=== PATIENT | male | born 1960 | race Caucasian/White ===

== ENCOUNTER 2018-06-12 08:04 | Emergency (ER) | payer MEDICAID ==
[~2018-06-12] VITALS: Ht 167.6 cm; Wt 85.6 kg
[~2018-06-12 08:04] MED LIST: CLON0.5T20; CLON0.5T20 PO; LISI-167 PO
[2018-06-12 08:10] VITALS: BP 145/95
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
--- NOTE | 2018-06-12 08:37 | NUR ---
Break RN note: Pt to xray ambulatory with steady gait accompanied by radiation control specialist.
--- NOTE | 2018-06-12 09:30 | NUR ---
PT STATES, "ARE YOU A FUCKING NURSE?" EXPLAINED THAT THIS RN APPRECIATE NOT TO USE LANGAUAGE WITH THIS RN. PT STATES, "I AM NOT GOOD WITH PEOPLE".
[2018-06-12] MEDS ORDERED: BACITRACIN ZINC OINT 500U/GM, 0.9 GM ONE ×2 (09:51→10:40)
[2018-06-12] MEDS ORDERED: KETOROLAC 30 MG/1 ML ONE ×2 (10:21→10:22)
[2018-06-12] MEDS ORDERED: KETOROLAC 30 MG/1 ML IM ONE (10:30)
--- NOTE | 2018-06-12 10:57 | NUR ---
Patient/Caregiver given discharge instructions and they have confirmed that they understand the instructions. Patient ambulatory with steady gait.
== END 2018-06-12 11:02 | disposition home or self-care (01) ==
LOC: ED 09:33
DX: S63.502A Unspecified sprain of left wrist, initial encounter (principal); S63.501A Unspecified sprain of right wrist, initial encounter; S60.212A Contusion of left wrist, initial encounter; S60.211A Contusion of right wrist, initial encounter; S00.511A Abrasion of lip, initial encounter; S00.81XA Abrasion of other part of head, initial encounter; M62.830 Muscle spasm of back; K21.9 Gastro-esophageal reflux disease without esophagitis; I10 Essential (primary) hypertension; V29.88XA Motorcycle rider (driver) (passenger) injured in other specified transport accidents, initial encounter; Y93.89 Activity, other specified; Y92.89 Other specified places as the place of occurrence of the external cause; Y99.8 Other external cause status
CPT/HCPCS: 72072; 73110; 73130; 96372; 99283; J1885

== ENCOUNTER 2019-02-15 13:34 | Emergency (ER) | payer MEDICAID ==
[~2019-02-15] VITALS: Ht 162.6 cm; Wt 86.3 kg
[2019-02-15 13:49] VITALS: BP 143/92
[2019-02-15] MEDS ORDERED: AZITHROMYCIN 500 MG TABLET PO ONE (14:00)
[2019-02-15] MEDS ORDERED: CEFTRIAXONE 250 MG IM ONE (14:00)
[2019-02-15] MEDS ORDERED: CEFTRIAXONE 250 MG ONE (14:11)
[2019-02-15] MEDS ORDERED: AZITHROMYCIN 500 MG TABLET ONE (14:11)
[2019-02-15] MEDS ORDERED: LIDOCAINE-MPF 1%, 2ML ONE (14:12)
--- NOTE | 2019-02-15 14:51 | NUR ---
Patient/Caregiver given discharge instructions and they have confirmed that they understand the instructions. Patient ambulatory with steady gait.
== END 2019-02-15 14:52 | disposition home or self-care (01) ==
LOC: ED 14:00
DX: H10.32 Unspecified acute conjunctivitis, left eye (principal); N34.2 Other urethritis; I10 Essential (primary) hypertension; K21.9 Gastro-esophageal reflux disease without esophagitis
CPT/HCPCS: 87491; 87591; 96372; 99283; J0696

== ENCOUNTER 2020-05-25 05:43 | Emergency (ER) | payer MEDICAID ==
[~2020-05-25] VITALS: Ht 175.3 cm; Wt 87.4 kg
[2020-05-25 05:50] VITALS: BP 151/100
== END 2020-05-25 07:09 | disposition home or self-care (01) ==
LOC: ED 07:04
DX: H92.02 Otalgia, left ear (principal); M26.622 Arthralgia of left temporomandibular joint; I10 Essential (primary) hypertension; K21.9 Gastro-esophageal reflux disease without esophagitis
CPT/HCPCS: 99283